=== PATIENT | female | born 1980 | race Caucasian/White ===

== ENCOUNTER 2017-06-30 06:48 | Emergency (ER) | payer BC ==
[~2017-06-30] VITALS: Ht 154.9 cm; Wt 85.0 kg
[~2017-06-30 06:48] MED LIST: BACT800T5 PO; IBUP600 PO; LORTA5 PO
[2017-06-30 06:49] VITALS: BP 168/87; PULSE 97; RESP 16; TEMP 98.5; O2SAT 100
[2017-06-30] MEDS ORDERED: KETOROLAC TROMETHAMINE 30 MG/ML (IVP) VIAL IV PUSH ONE (07:45)
[2017-06-30] MEDS ORDERED: SODIUM CHLOR 0.9% 1000 ML INJ 1,000 ML IV ONE (07:45)
--- NOTE | 2017-06-30 08:27 | PD ---
HPI Chief Complaint: Complaint Time Seen by Provider: 07:34 Travel History International Travel<30 days: No Contact w/Intl Traveler<30days: No Traveled to known affect area: No History of Present Illness HPI This is a 36-year-old female who presents to the emergency department with bilateral lower back pain that's been going on for 6 weeks intermittently, moderate severity, associated with dysuria, urinary urgency, and frequency. She says it feels like urinary tract infections that she's had in the past but it's worse. She says she feels like she has pressure in her low back she is very uncomfortable in the evenings when she tries to sleep. She denies any fevers or chills and denies any nausea or vomiting. PFSH Past Medical History Medical History: Denies Significant Hx Immunizations Current: Yes Tetanus Vaccination: < 5 Years Influenza Vaccination: No ?: Not Past Surgical History Gynecologic Surgery: Yes Other Surgery: Yes (myomectomy 2005) Social History Alcohol Use: No Tobacco Use: Yes Substance Use: No Allergies-Medications (Allergen,Severity, Reaction): Coded Allergies: No Known Allergies (Unverified , 06/30/17) Reported Meds & Prescriptions Reported Meds & Active Scripts Active No Active Prescriptions or Reported Medications Review of Systems Except as stated in HPI: all other systems reviewed are Neg Physical Exam Narrative GENERAL:Well appearing, no acute distress SKIN: Focused skin assessment warm and dry. HEAD: Atraumatic. Normocephalic. EYES: Pupils equal and round. No injection or drainage. ENT: Moist mucous membranes NECK: Trachea midline. CARDIOVASCULAR: Regular rate and rhythm. No murmur appreciated. RESPIRATORY: Clear to auscultation. Breath sounds equal bilaterally. GASTROINTESTINAL: Abdomen soft, non-tender, nondistended. : Bilateral CVA tenderness. MUSCULOSKELETAL: No obvious deformities. NEUROLOGICAL: Awake and alert. No obvious cranial nerve deficits. Moving all extremities. PSYCHIATRIC: Appropriate mood and affect; insight and judgment normal. Data Data Last Documented VS Vital Signs Date Time Temp Pulse Resp B/P Pulse Ox O2 Delivery O2 Flow Rate FiO2 06/30/17 06:49 98.5 97 16 168/87 100 Room Air Orders Complete Blood Count With Diff (06/30/17 07:39) Comprehensive Metabolic Panel (06/30/17 07:39) Ed Urine Pregnancytest Poc (06/30/17 07:39) Urinalysis - C+S If Indicated (06/30/17 07:39) Ketorolac Inj (Toradol Inj) (06/30/17 07:45) Sodium Chlor 0.9% 1000 Ml Inj (Ns 1000 M (06/30/17 07:45) ^ Insert Iv (06/30/17 07:39) Urine Culture (06/30/17 07:00) Ceftriaxone Inj (Rocephin Inj) (06/30/17 09:15) Labs Laboratory Tests Test 06/30/17 06/30/17 07:00 08:09 Urine Color YELLOW Urine Turbidity HAZY Urine pH 5.5 Urine Specific [place] 1.027 Urine Protein NEG mg/dL Urine Glucose (UA) NEG mg/dL Urine Ketones NEG mg/dL Urine Occult Blood NEG Urine Nitrite NEG Urine Bilirubin NEG Urine Urobilinogen LESS THAN 2.0 MG/DL Urine Leukocyte Esterase LARGE Urine RBC 1 /hpf Urine WBC 29 /hpf Urine Squamous Epithelial 6 /hpf Cells Urine Bacteria OCC /hpf Urine Mucus FEW /lpf Microscopic Urinalysis Comment CULTURE INDICATED White Blood Count 8.4 TH/MM3 Red Blood Count 5.15 MIL/MM3 Hemoglobin 14.3 GM/DL Hematocrit 42.4 % Mean Corpuscular Volume 82.3 FL Mean Corpuscular Hemoglobin 27.7 PG Mean Corpuscular Hemoglobin 33.7 % Concent Red Cell Distribution Width 14.8 % Platelet Count 375 TH/MM3 Mean Platelet Volume 7.1 FL Neutrophils (%) (Auto) 62.0 % Lymphocytes (%) (Auto) 30.9 % Monocytes (%) (Auto) 4.8 % Eosinophils (%) (Auto) 1.8 % Basophils (%) (Auto) 0.5 % Neutrophils # (Auto) 5.2 TH/MM3 Lymphocytes # (Auto) 2.6 TH/MM3 Monocytes # (Auto) 0.4 TH/MM3 Eosinophils # (Auto) 0.2 TH/MM3 Basophils # (Auto) 0.0 TH/MM3 CBC Comment DIFF FINAL Differential Comment Sodium Level 142 MEQ/L Potassium Level 3.0 MEQ/L Chloride Level 109 MEQ/L Carbon Dioxide Level 23.9 MEQ/L Anion Gap 9 MEQ/L Blood Urea Nitrogen 11 MG/DL Creatinine 0.60 MG/DL Estimat Glomerular Filtration 114 ML/MIN Rate Random Glucose 84 MG/DL Calcium Level 7.1 MG/DL Protein Corrected Calcium 7.8 MG/DL Total Bilirubin 0.3 MG/DL Aspartate Amino Transf 13 U/L (AST/SGOT) Alanine Aminotransferase 12 U/L (ALT/SGPT) Alkaline Phosphatase 75 U/L Total Protein 5.8 GM/DL Albumin 2.9 GM/DL MDM Medical Decision Making Medical Screen Exam Complete: Yes Emergency Medical Condition: Yes Interpretation(s) Afebrile, mild tachycardia, hypertensive No leukocytosis Mild hypokalemia and mild hypocalcemia Urinary tract infection Differential Diagnosis Pyelonephritis, urinary tract infection, nephrolithiasis, musculoskeletal back pain Narrative Course This is a 36-year-old female who presents to the emergency department with signs and symptoms classic for pyelonephritis. Labs were obtained which were reassuring. Urinalysis demonstrates a urinary tract infection. She was given a dose of IV ceftriaxone as well as pain control. She is nontoxic appearing and I think she is appropriate for outpatient management with oral antibiotic therapy. Diagnosis Primary Impression: Pyelonephritis Patient Instructions: General Instructions Additional Instructions: If you develop fever, persistent vomiting, back pain, or inability to eat return to the emergency department as your urine infection may have progressed to a kidney infection. Complete your antibiotics as prescribed. Stay well hydrated with Gatorade or water. Followup with your primary care physician in 2-3 days if your symptoms have not resolved. Med/Other Pt SpecificInfo: Prescription(s) given Scripts Phenazopyridine (Pyridium)100 Mg [id number] Mg PO Q8H PRN (DYSURIA) #6 TAB Ref 0 Prov:Mehnaz Ag MD 06/30/17 Naproxen 500 Mg [id number] Mg PO BID PRN (PAIN SCALE 4 TO 10) #14 TAB Ref 0 Prov:Mehnaz Ag MD 06/30/17 Cephalexin (Keflex)500 Mg [id number] Mg PO Q12H 7 Days Ref 0 Prov:Mehnaz Ag MD 06/30/17 Disposition: 01 DISCHARGE HOME Condition: Stable Mehnaz Ag MD Jun 30, 2017 08:27
[2017-06-30 08:28] LABS: AUTOMATED NEUTROPHIL # 5.2 TH/MM3 (1.8-7.7); BASOPHIL % 0.5 % (0.0-2.0); EOSINOPHIL # 0.2 TH/MM3 (0-0.4); EOSINOPHIL % 1.8 % (0.0-4.0); HEMATOCRIT 42.4 % (35.0-46.0); HEMO FLAGS DIFF FINAL; LYMPH % 30.9 % (9.0-44.0); LYMPHOCYTE # 2.6 TH/MM3 (1.0-4.8); MEAN CELL VOLUME 82.3 FL (80.0-100.0); MEAN CORPUSCULAR HEMOGLOBIN 27.7 PG (27.0-34.0); MEAN CORPUSCULAR HGB CONC 33.7 % (32.0-36.0); MONO % 4.8 % (0.0-8.0); PLATELET COUNT 375 TH/MM3 (150-450); RED BLOOD COUNT 5.15 MIL/MM3 (4.00-5.30); RED CELL DISTRIBUTION WIDTH 14.8 % (11.6-17.2); WHITE BLOOD COUNT 8.4 TH/MM3 (4.0-11.0)
[2017-06-30 08:39] LABS: BLOOD, URINE NEG (NEG); COMMENT (UR) CULTURE INDICATED; CULTURE IF INDICATED CULTURE INDICATED; GLUCOSE,URINE NEG (NEG); KETONE, URINE NEG (NEG); MUCUS URINE FEW /lpf (OCC); NITRITE,URINE NEG (NEG); PH, URINE 5.5 (5.0-8.5); SQUAMOUS EPITHELIAL CELL URINE 6 /hpf (0-5); URINE COLOR YELLOW (YELLW/STRAW)
[2017-06-30 08:40] LABS: BACTERIA, URINE OCC /hpf
[2017-06-30 09:01] LABS: BICARBONATE 23.9 MEQ/L (21.0-32.0); CALCIUM-PROTEIN CORRECTED 7.8 MG/DL (8.5-10.1); TOTAL BILIRUBIN ADULT 0.3 MG/DL (0.2-1.0)
[2017-06-30] MEDS ORDERED: NAPR500T PO (09:14)
[2017-06-30] MEDS ORDERED: CEPH-460 PO (09:14)
[2017-06-30] MEDS ORDERED: PHEN0.4T PO (09:14)
[2017-06-30] MEDS ORDERED: cefTRIAXone INJ 1,000 MG in SODIUM CHLORIDE 0.9% INJ 100 ML IV ONE (09:15)
[2017-06-30 10:03] VITALS: BP 128/86
== END 2017-06-30 09:24 | disposition home or self-care (01) ==
LOC: NEPE 06:48
DX: N12 Tubulo-interstitial nephritis, not specified as acute or chronic (principal); B96.89 Other specified bacterial agents as the cause of diseases classified elsewhere
CPT/HCPCS: 80053; 81001; 84703; 85025; 87086; 96374; 96375; 99284; J0696; J1885; J7030

== ENCOUNTER 2018-03-25 12:55 | Emergency (ER) | payer SELFPAY ==
[~2018-03-25 12:55] MED LIST changes: -BACT800T5 PO; +CEPH-460 PO; -IBUP600 PO; -LORTA5 PO; +NAPR500T2 PO; +PHEN0.4T PO
[2018-03-25 12:57] VITALS: BP 176/97; PULSE 102; RESP 18; TEMP 98.6; O2SAT 100
--- NOTE | 2018-03-25 13:44 | RADRPT ---
EXAM DATE/TIME: 03/25/2018 13:24 [place] COMPARISON: No previous studies available for comparison. INDICATIONS : Right wrist pain; sprained wrist 3 weeks ago. Follow up. MEDICAL HISTORY : None. SURGICAL HISTORY : None. ENCOUNTER: Initial ACUITY: 3 weeks PAIN SCORE: 1/10 LOCATION: Right wrist. FINDINGS: Three view examination of the right wrist demonstrates no soft tissue swelling, dislocation, or fract ure. The carpal bones are in normal alignment. The joint spaces are maintained. Bony mineralizatio n is normal. CONCLUSION: Unremarkable examination of the right wrist. Adam Bernardo MD on March 25, 2018 at 13:42 Board Certified Radiologist. This report was verified electronically.
--- NOTE | 2018-03-25 14:58 | PD ---
HPI Chief Complaint: Injury Time Seen by Provider: 14:28 Travel History International Travel<30 days: No Contact w/Intl Traveler<30days: No Traveled to known affect area: No History of Present Illness HPI 37-year-old female presents to the emergency room requesting a note for work. Patient states about 3 weeks ago she sprained her right wrist while pulling a deep root out of the ground. She went to her primary care physician who told her it was likely sprained and placed her in a splint. He also gave her prednisone which she took and finished. States she was occasionally taking Tylenol Motrin for pain but since then her symptoms have completely resolved. She has no pain with range of motion or lifting. No pain at rest. No swelling. Her doctor gave her a note to return to work after 1 week of rest. 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 No chronic medical conditions or daily medications. PFSH Past Medical History Medical History: Denies Significant Hx Immunizations Current: Yes Tetanus Vaccination: < 5 Years ?: Not Past Surgical History Gynecologic Surgery: Yes Other Surgery: Yes (myomectomy 2004) Social History Alcohol Use: No Tobacco Use: Yes Substance Use: No Allergies-Medications (Allergen,Severity, Reaction): Coded Allergies: No Known Allergies (Unverified Adverse Reaction, Unknown, 03/25/18) Reported Meds & Prescriptions Reported Meds & Active Scripts Active Pyridium (Phenazopyridine HCl) 100 Mg Tab 100 Mg PO Q8H PRN Naproxen 500 Mg Tab 500 Mg PO BID PRN Keflex (Cephalexin) 500 Mg Cap 500 Mg PO Q12H 7 Days Review of Systems Except as stated in HPI: all other systems reviewed are Neg Physical Exam Narrative GENERAL: Well-nourished, well-developed female no acute distress. Afebrile. Ambulatory. SKIN: Focused skin assessment warm/dry. No erythema or ecchymosis. HEAD: Normocephalic. EYES: No scleral icterus. No injection or drainage. NECK: Supple, trachea midline. No JVD or lymphadenopathy. CARDIOVASCULAR: Regular rate and rhythm without murmurs, gallops, or rubs. RESPIRATORY: Breath sounds equal bilaterally. No accessory muscle use. MUSCULOSKELETAL: No cyanosis, or edema. Full range of motion of the right wrist. 2+ radial pulse. Radial, ulnar, and median nerves intact. Data Data Last Documented VS Vital Signs Date Time Temp Pulse Resp B/P (MAP) Pulse Ox O2 Delivery O2 Flow Rate FiO2 03/25/18 12:57 98.6 102 18 176/97 (123) 100 Orders Orders Wrist, Complete ([id number]) (03/25/18 ) [facility] Medical Decision Making Medical Screen Exam Complete: Yes Emergency Medical Condition: Yes Medical Record Reviewed: Yes Differential Diagnosis Sprain, contusion, normal examination, fracture Narrative Course 37-year-old female presents to the emergency room requesting a work note to return to work. Patient states she sprained her wrist 3 weeks ago and was given a note to return to work but her work would not accept unless she had a negative x-ray. She is completely asymptomatic. She has full range of motion of the right wrist. It is neurovascularly intact. X-ray is negative. She will be given a note to return to work. Told to follow-up with the primary care physician as needed or return for worsening symptoms. She understands and agrees to plan. Diagnosis Primary Impression: Right wrist sprain Qualified Codes: S63.501D - Unspecified sprain of right wrist, subsequent encounter Referrals: Primary Care Physician Departure Forms: Tests/Procedures, Work Release Enter return to work date: Mar 26, 2018 Additional Instructions: Rest and drink plenty of fluids. Follow-up with a primary care physician. Return to the emergency room for worsening symptoms. Med/Other Pt SpecificInfo: Prescription(s) given Disposition: 01 DISCHARGE HOME Condition: Stable Fior Landon Mar 25, 2018 14:58
== END 2018-03-25 15:05 | disposition home or self-care (01) ==
LOC: NEPK 12:55
DX: S63.501D Unspecified sprain of right wrist, subsequent encounter (principal); X50.0XXD Overexertion from strenuous movement or load, subsequent encounter; Z72.0 Tobacco use; Z02.89 Encounter for other administrative examinations
CPT/HCPCS: 73110; 99283

== ENCOUNTER 2018-05-24 11:01 | Emergency (ER) | payer SELFPAY ==
[~2018-05-24] VITALS: Ht 154.9 cm; Wt 86.0 kg
[2018-05-24 11:08] VITALS: BP 148/85; PULSE 90; RESP 19; TEMP 97.5; O2SAT 99
[2018-05-24] MEDS ORDERED: SODIUM CHLOR 0.9% 1000 ML INJ 1,000 ML IV SCH (11:18)
--- NOTE | 2018-05-24 11:20 | PD ---
HPI Chief Complaint: Back/ Neck Pain or Injury Time Seen by Provider: 11:15 Travel History International Travel<30 days: No Contact w/Intl Traveler<30days: No Traveled to known affect area: No History of Present Illness HPI 37-year-old female with no significant medical history presents emergency department for evaluation of bilateral flank pain. Patient states this has persisted for a year. She is seen through the [facility] and has been diagnosed with UTIs or kidney infections several times over the last year. She has been given antibiotics, most recent course was 2 months ago. She states that these never help in improving her symptoms. She comes emergency department today because her pain was more severe than usual. Yesterday she only voided twice which is also unusual for her. Pain is a cramping, intermittently stabbing pain. She denies any abdominal pain. No nausea or vomiting. She has had no fever or chills. Patient's mother had renal cancer and was on dialysis. Her grandmother was also on dialysis for what reason she is unsure. Patient has no other symptoms to report at this time. [facility] Past Medical History Medical History: Denies Significant Hx Immunizations Current: Yes ?: Not LMP: 05/01/18 Past Surgical History Gynecologic Surgery: Yes Other Surgery: Yes (myomectomy 2005) Social History Alcohol Use: No Tobacco Use: Yes Substance Use: No Allergies-Medications (Allergen,Severity, Reaction): Coded Allergies: No Known Allergies (Unverified Adverse Reaction, Unknown, 03/25/18) Reported Meds & Prescriptions Reported Meds & Active Scripts Active Keflex (Cephalexin) 500 Mg Cap 500 Mg PO Q12H 7 Days Pyridium (Phenazopyridine HCl) 100 Mg Tab 100 Mg PO Q8H PRN Naproxen 500 Mg Tab 500 Mg PO BID PRN Keflex (Cephalexin) 500 Mg Cap 500 Mg PO Q12H 7 Days Review of Systems Except as stated in HPI: all other systems reviewed are Neg Physical Exam Narrative GENERAL: Well-nourished female patient, ambulatory and in no acute distress. SKIN: Focused skin assessment warm/dry. HEAD: Atraumatic. Normocephalic. EYES: Pupils equal and round. No scleral icterus. No injection or drainage. ENT: No nasal bleeding or discharge. Mucous membranes pink and moist. NECK: Trachea midline. No JVD. CARDIOVASCULAR: Regular rate and rhythm. No murmur appreciated. RESPIRATORY: No accessory muscle use. Clear to auscultation. Breath sounds equal bilaterally. GASTROINTESTINAL: Abdomen soft, non-tender, nondistended. No guarding. No rebound tenderness. Hepatic and splenic margins not palpable. MUSCULOSKELETAL: No obvious deformities. No clubbing. No cyanosis. No edema. Bilateral CVA tenderness. NEUROLOGICAL: Awake and alert. No obvious cranial nerve deficits. Motor grossly within normal limits. Normal speech. PSYCHIATRIC: Appropriate mood and affect; insight and judgment normal. Data Data Last Documented VS Vital Signs Date Time Temp Pulse Resp B/P (MAP) Pulse Ox O2 Delivery O2 Flow Rate FiO2 05/24/18 13:55 63 18 135/60 (85) 99 Room Air 05/24/18 11:08 97.5 Orders Orders Basic Metabolic Panel (Bmp) (05/24/18 11:18) Complete Blood Count With Diff (05/24/18 11:18) Urinalysis - C+S If Indicated (05/24/18 11:18) Ct Abd/Pel W/O Iv Contrast (05/24/18 11:18) Iv Access Insert/Monitor (05/24/18 11:18) Ecg Monitoring (05/24/18 11:18) Oximetry (05/24/18 11:18) Sodium Chlor 0.9% 1000 Ml Inj (Ns 1000 M (05/24/18 11:18) Sodium Chloride 0.9% Flush (Ns Flush) (05/24/18 11:30) Ketorolac Inj (Toradol Inj) (05/24/18 11:30) Ed Urine Pregnancytest Poc (05/24/18 11:18) Urine Culture (05/24/18 11:42) Us Kidney/Renal/Bladder (05/24/18 ) Ed Discharge Order (05/24/18 16:15) Mandatory Outpatient Referral (05/24/18 16:19) Labs Laboratory Tests Test 05/24/18 11:42 White Blood Count 7.4 TH/MM3 Red Blood Count 4.82 MIL/MM3 Hemoglobin 12.9 GM/DL Hematocrit 39.4 % Mean Corpuscular Volume 81.8 FL Mean Corpuscular Hemoglobin 26.7 PG Mean Corpuscular Hemoglobin Concent 32.7 % Red Cell Distribution Width 14.7 % Platelet Count 362 TH/MM3 Mean Platelet Volume 7.3 FL Neutrophils (%) (Auto) 61.5 % Lymphocytes (%) (Auto) 30.7 % Monocytes (%) (Auto) 5.5 % Eosinophils (%) (Auto) 1.8 % Basophils (%) (Auto) 0.5 % Neutrophils # (Auto) 4.6 TH/MM3 Lymphocytes # (Auto) 2.3 TH/MM3 Monocytes # (Auto) 0.4 TH/MM3 Eosinophils # (Auto) 0.1 TH/MM3 Basophils # (Auto) 0.0 TH/MM3 CBC Comment DIFF FINAL Differential Comment Urine Color YELLOW Urine Turbidity CLOUDY Urine pH 5.0 Urine Specific [place] 1.024 Urine Protein NEG mg/dL Urine Glucose (UA) NEG mg/dL Urine Ketones NEG mg/dL Urine Occult Blood NEG Urine Nitrite NEG Urine Bilirubin NEG Urine Urobilinogen 4.0 OR GREATER mg/dL Urine Leukocyte Esterase LARGE Urine RBC 6 /hpf Urine WBC 16 /hpf Urine Squamous Epithelial Cells 14 /hpf Urine Calcium Oxalate Crystals MOD /hpf Urine Bacteria RARE /hpf Urine Mucus FEW /lpf Microscopic Urinalysis Comment CULTURE INDICATED Blood Urea Nitrogen 11 MG/DL Creatinine 0.93 MG/DL Random Glucose 114 MG/DL Calcium Level 8.3 MG/DL Sodium Level 141 MEQ/L Potassium Level 3.7 MEQ/L Chloride Level 106 MEQ/L Carbon Dioxide Level 27.7 MEQ/L Anion Gap 7 MEQ/L Estimat Glomerular Filtration Rate 68 ML/MIN [facility] Medical Decision Making Medical Screen Exam Complete: Yes Emergency Medical Condition: Yes Medical Record Reviewed: Yes Differential Diagnosis Pyelonephritis versus renal calculi versus neoplasm versus back pain versus muscle spasm versus strain Narrative Course 37-year-old female presents emergency department for evaluation of bilateral flank pain. Patient appears well. Her vital signs are stable. She does have bilateral CVA tenderness. Patient reports no history of scan or lab work in regards to her recurrent UTIs. Laboratory Tests Test 05/24/18 11:42 White Blood Count 7.4 TH/MM3 Red Blood Count 4.82 MIL/MM3 Hemoglobin 12.9 GM/DL Hematocrit 39.4 % Mean Corpuscular Volume 81.8 FL Mean Corpuscular Hemoglobin 26.7 PG Mean Corpuscular Hemoglobin Concent 32.7 % Red Cell Distribution Width 14.7 % Platelet Count 362 TH/MM3 Mean Platelet Volume 7.3 FL Neutrophils (%) (Auto) 61.5 % Lymphocytes (%) (Auto) 30.7 % Monocytes (%) (Auto) 5.5 % Eosinophils (%) (Auto) 1.8 % Basophils (%) (Auto) 0.5 % Neutrophils # (Auto) 4.6 TH/MM3 Lymphocytes # (Auto) 2.3 TH/MM3 Monocytes # (Auto) 0.4 TH/MM3 Eosinophils # (Auto) 0.1 TH/MM3 Basophils # (Auto) 0.0 TH/MM3 CBC Comment DIFF FINAL Differential Comment Urine Color YELLOW Urine Turbidity CLOUDY Urine pH 5.0 Urine Specific [place] 1.024 Urine Protein NEG mg/dL Urine Glucose (UA) NEG mg/dL Urine Ketones NEG mg/dL Urine Occult Blood NEG Urine Nitrite NEG Urine Bilirubin NEG Urine Urobilinogen 4.0 OR GREATER mg/dL Urine Leukocyte Esterase LARGE Urine RBC 6 /hpf Urine WBC 16 /hpf Urine Squamous Epithelial Cells 14 /hpf Urine Calcium Oxalate Crystals MOD /hpf Urine Bacteria RARE /hpf Urine Mucus FEW /lpf Microscopic Urinalysis Comment CULTURE INDICATED Blood Urea Nitrogen 11 MG/DL Creatinine 0.93 MG/DL Random Glucose 114 MG/DL Calcium Level 8.3 MG/DL Sodium Level 141 MEQ/L Potassium Level 3.7 MEQ/L Chloride Level 106 MEQ/L Carbon Dioxide Level 27.7 MEQ/L Anion Gap 7 MEQ/L Estimat Glomerular Filtration Rate 68 ML/MIN Last Impressions Abdomen/Pelvis CT 05/24/18 1118 Signed Impressions: CONCLUSION: 1. Degenerative changes at L4-5. 2. No acute inflammatory process. 3. Nonspecific low-density involving left kidney. Nonemergent renal sonogram r ecommended. Renal Ultrasound 05/24/18 0000 Signed Impressions: CONCLUSION: 1. Echogenic kidneys suggesting medical renal disease. No hydronephrosis. 2 cm left renal cyst. Multiple gallstones. Findings are discussed with the patient. She is encouraged to seek nephrology evaluation. She agrees to return immediately with acute worsening symptoms. Diagnosis Primary Impression: Flank pain Additional Impressions: Echogenic kidneys on renal ultrasound Hematuria Qualified Codes: R31.9 - Hematuria, unspecified Referrals: Primary Care Physician Patient Instructions: Flank Pain (ED), General Instructions Additional Instructions: Follow-up with a pathologist assistant Follow-up with primary care provider Avoid NSAIDs Tylenol as directed on the package as needed for pain Return immediately with acute worsening of symptoms Med/Other Pt SpecificInfo: Prescription(s) given Scripts Cephalexin (Keflex) 500 Mg Cap 500 MG PO Q12H for Infection for 7 Days, #14 CAP 0 Refills Prov: Bryanna Evans 05/24/18 Disposition: 01 DISCHARGE HOME Condition: Stable Bryanna Evans May 24, 2018 11:20
[2018-05-24] MEDS ORDERED: SODIUM CHLORIDE 0.9% FLUSH 10 ML FLUSH IV FLUSH PRN (11:30)
[2018-05-24] MEDS ORDERED: KETOROLAC TROMETHAMINE 30 MG/ML (IVP) VIAL IVP ONE (11:30)
[2018-05-24 12:08] LABS: AUTOMATED NEUTROPHIL # 4.6 TH/MM3 (1.8-7.7); BASOPHIL % 0.5 % (0.0-2.0); EOSINOPHIL # 0.1 TH/MM3 (0-0.4); EOSINOPHIL % 1.8 % (0.0-4.0); HEMATOCRIT 39.4 % (35.0-46.0); HEMOGLOBIN 12.9 GM/DL (11.6-15.3); LYMPH % 30.7 % (9.0-44.0); LYMPHOCYTE # 2.3 TH/MM3 (1.0-4.8); MEAN CELL VOLUME 81.8 FL (80.0-100.0); MEAN CORPUSCULAR HEMOGLOBIN 26.7 PG (27.0-34.0); MEAN CORPUSCULAR HGB CONC 32.7 % (32.0-36.0); MEAN PLATELET VOLUME 7.3 FL (7.0-11.0); MONO % 5.5 % (0.0-8.0); MONOCYTE # 0.4 TH/MM3 (0-0.9); NEUT % 61.5 % (16.0-70.0); PLATELET COUNT 362 TH/MM3 (150-450); RED BLOOD COUNT 4.82 MIL/MM3 (4.00-5.30); RED CELL DISTRIBUTION WIDTH 14.7 % (11.6-17.2); WHITE BLOOD COUNT 7.4 TH/MM3 (4.0-11.0)
[2018-05-24 12:15] LABS: BACTERIA, URINE RARE /hpf; BILIRUBIN, URINE NEG (NEG); BLOOD, URINE NEG (NEG); CALCIUM OXALATE CRYSTALS,URINE MOD /hpf; GLUCOSE,URINE NEG (NEG); KETONE, URINE NEG (NEG); MUCUS URINE FEW /lpf (OCC); NITRITE,URINE NEG (NEG); SQUAMOUS EPITHELIAL CELL URINE 14 /hpf (0-5); URINE COLOR YELLOW (YELLW/STRAW); URINE LEUKOCYTE ESTERASE LARGE (NEG)
[2018-05-24 12:22] LABS: BICARBONATE 27.7 MEQ/L (21.0-32.0); CALCIUM 8.3 MG/DL (8.5-10.1); CREATININE 0.93 MG/DL (0.50-1.00)
[2018-05-24 13:55] VITALS: BP 135/60; PULSE 63; RESP 18; O2SAT 99
--- NOTE | 2018-05-24 14:04 | RADRPT ---
EXAM DATE: 05/24/2018 1:55 PM EDT AGE/SEX: 37 years / Female INDICATIONS: Lower back pain for one year. CLINICAL DATA: This is the patient's initial encounter. Patient reports that signs and symptoms have been present for > 1 year and indicates a pain score of 6/10. MEDICAL/SURGICAL HISTORY: None. . myomectomy RADIATION DOSE: 8.51 CTDI (mGy) COMPARISON: No prior exams available for comparison. TECHNIQUE: Multiple contiguous axial images were obtained through the abdomen. Images were obtained using multiple row detector helical technique. Using automated exposure control and adjustment of the mA and/or kV according to patient size, radiation dose was kept as low as reasonably achievable to o btain optimal diagnostic quality images. DICOM format image data is available electronically for rev iew and comparison. FINDINGS: Lower Lungs: The visualized lower lungs are clear. Liver: The liver has a homogeneous density without space-occupying lesion. There is no dilation of th e biliary tree. Spleen: Homogeneous density without enlargement. Pancreas: Unremarkable without mass or calcification. Kidneys: Normal in size and shape. No evidence of mass or hydronephrosis. Nonspecific low-density le ft kidney Adrenal Glands: Unremarkable. Aorta: The aorta and proximal iliac vessels are grossly unremarkable without aneurysmal dilation. Bowel/Mesentery: The bowel loops are grossly unremarkable. The cecum and sigmoid colon have a normal configuration. Abdominal Wall: Intact. Retroperitoneum: No evidence of adenopathy in the retrocrural, para-aortic, or deep pelvic regions. Bladder: Contours are smooth. Reproductive Organs: No abnormal masses or calcifications seen. Right ovary borderline prominent esperanza suring 4 cm. Inguinal: The inguinal region is unremarkable without evidence of adenopathy. Bony Structures: Degenerative changes L4-5. CONCLUSION: 1. Degenerative changes at L4-5. 2. No acute inflammatory process. 3. Nonspecific low-density involving left kidney. Nonemergent renal sonogram recommended. Electronically signed by: Rian Jones MD 05/24/2018 2:03 PM EDT
--- NOTE | 2018-05-24 16:01 | RADRPT ---
EXAM DATE: 05/24/2018 3:46 PM EDT AGE/SEX: 37 years / Female INDICATIONS: Flank pain. CLINICAL DATA: This is the patient's initial encounter. Patient reports that signs and symptoms have been present for > 1 year and indicates a pain score of 3/10. MEDICAL/SURGICAL HISTORY: . Kidney stones. Tobacco use. Kidney infection. . Myomectomy. COMPARISON: No prior exams available for comparison. MEASUREMENTS: Right Kidney:__10.0 x 4.3 x 5.1 cm Left Kidney:__10.5 x 4.5 x 5.3 cm FINDINGS: Right Kidney: Increased echotexture. No mass or hydronephrosis. Left Kidney: Increased echotexture. No mass or hydronephrosis. Bladder: Within normal limits given the degree of distension. Other: Echogenic gallstones present CONCLUSION: 1. Echogenic kidneys suggesting medical renal disease. No hydronephrosis. 2 cm left renal cyst. Mult iple gallstones. Electronically signed by: Isak Obregon MD 05/24/2018 4:00 PM EDT
[2018-05-24] MEDS ORDERED: CEPH-460 PO ×2 (16:18→16:25)
[2018-05-24 16:39] VITALS: BP 132/64
--- NOTE | 2018-05-24 20:01 | PD ---
Physical Exam Date Seen by Provider: May 24, 2018 Time Seen by Provider: 12:00 Narrative I, Dr. Sanchez, have reviewed the advance practice practitioner's documentation and am in agreement, met with the patient face to face, made the diagnosis, and the medical decision making was done by me. *My assessment and Findings: Patient seen and evaluated with nurse practitioner , please see nurse practitioner notes for further details. She is coming in with flank pains, has poor follow-up care, worsening. On evaluation, she has bilateral flank tenderness. Abdomen soft, nontender. Laboratory Tests Test 05/24/18 11:42 Mean Corpuscular Hemoglobin 26.7 PG (27.0-34.0) Urine Turbidity CLOUDY (CLEAR) Urine Urobilinogen 4.0 OR GREATER mg/dL (LESS Urine Leukocyte Esterase LARGE (NEG) Urine RBC 6 /hpf (0-3) Urine WBC 16 /hpf (0-5) Urine Calcium Oxalate Crystals MOD /hpf (NONE) Urine Bacteria RARE /hpf (NONE) Urine Mucus FEW /lpf (OCC) Random Glucose 114 MG/DL (74-106) Calcium Level 8.3 MG/DL (8.5-10.1) Estimat Glomerular Filtration Rate 68 ML/MIN (>89) Last 24 hours Impressions Abdomen/Pelvis CT 05/24/18 1118 Signed Impressions: CONCLUSION: 1. Degenerative changes at L4-5. 2. No acute inflammatory process. 3. Nonspecific low-density involving left kidney. Nonemergent renal sonogram r ecommended. Renal Ultrasound 05/24/18 0000 Signed Impressions: CONCLUSION: 1. Echogenic kidneys suggesting medical renal disease. No hydronephrosis. 2 cm left renal cyst. Multiple gallstones. Lab work shows signs a UTI. Plan would be to treat her for UTI. CAT scan was done did not show any signs of acute intra-abdominal processes but does show a low density abnormality in the left kidney, ultrasound was done which shows 2 cm renal cyst. Patient is released with follow-up to outpatient care. Data Data Last Documented VS Vital Signs Date Time Temp Pulse Resp B/P (MAP) Pulse Ox O2 Delivery O2 Flow Rate FiO2 05/24/18 16:39 61 19 132/64 (86) 98 05/24/18 13:55 Room Air 05/24/18 11:08 97.5 Orders Orders Basic Metabolic Panel (Bmp) (05/24/18 11:18) Complete Blood Count With Diff (05/24/18 11:18) Urinalysis - C+S If Indicated (05/24/18 11:18) Ct Abd/Pel W/O Iv Contrast (05/24/18 11:18) Iv Access Insert/Monitor (05/24/18 11:18) Ecg Monitoring (05/24/18 11:18) Oximetry (05/24/18 11:18) Sodium Chlor 0.9% 1000 Ml Inj (Ns 1000 M (05/24/18 11:18) Sodium Chloride 0.9% Flush (Ns Flush) (05/24/18 11:30) Ketorolac Inj (Toradol Inj) (05/24/18 11:30) Ed Urine Pregnancytest Poc (05/24/18 11:18) Urine Culture (05/24/18 11:42) Us Kidney/Renal/Bladder (05/24/18 ) Ed Discharge Order (05/24/18 16:15) Mandatory Outpatient Referral (05/24/18 16:19) Labs Laboratory Tests Test 05/24/18 11:42 White Blood Count 7.4 TH/MM3 Red Blood Count 4.82 MIL/MM3 Hemoglobin 12.9 GM/DL Hematocrit 39.4 % Mean Corpuscular Volume 81.8 FL Mean Corpuscular Hemoglobin 26.7 PG Mean Corpuscular Hemoglobin Concent 32.7 % Red Cell Distribution Width 14.7 % Platelet Count 362 TH/MM3 Mean Platelet Volume 7.3 FL Neutrophils (%) (Auto) 61.5 % Lymphocytes (%) (Auto) 30.7 % Monocytes (%) (Auto) 5.5 % Eosinophils (%) (Auto) 1.8 % Basophils (%) (Auto) 0.5 % Neutrophils # (Auto) 4.6 TH/MM3 Lymphocytes # (Auto) 2.3 TH/MM3 Monocytes # (Auto) 0.4 TH/MM3 Eosinophils # (Auto) 0.1 TH/MM3 Basophils # (Auto) 0.0 TH/MM3 CBC Comment DIFF FINAL Differential Comment Urine Color YELLOW Urine Turbidity CLOUDY Urine pH 5.0 Urine Specific [place] 1.024 Urine Protein NEG mg/dL Urine Glucose (UA) NEG mg/dL Urine Ketones NEG mg/dL Urine Occult Blood NEG Urine Nitrite NEG Urine Bilirubin NEG Urine Urobilinogen 4.0 OR GREATER mg/dL Urine Leukocyte Esterase LARGE Urine RBC 6 /hpf Urine WBC 16 /hpf Urine Squamous Epithelial Cells 14 /hpf Urine Calcium Oxalate Crystals MOD /hpf Urine Bacteria RARE /hpf Urine Mucus FEW /lpf Microscopic Urinalysis Comment CULTURE INDICATED Blood Urea Nitrogen 11 MG/DL Creatinine 0.93 MG/DL Random Glucose 114 MG/DL Calcium Level 8.3 MG/DL Sodium Level 141 MEQ/L Potassium Level 3.7 MEQ/L Chloride Level 106 MEQ/L Carbon Dioxide Level 27.7 MEQ/L Anion Gap 7 MEQ/L Estimat Glomerular Filtration Rate 68 ML/MIN [facility] Medical Record Reviewed: Yes Supervised Visit with CATHIE: Yes Diagnosis Primary Impression: Flank pain Additional Impressions: Hematuria Echogenic kidneys on renal ultrasound Referrals: Primary Care Physician Patient Instructions: General Instructions, Cephalexin (By mouth), Flank Pain ( ED) Departure Forms: Tests/Procedures Additional Instruction: Follow-up with a wet pan operator Follow-up with primary care provider Avoid NSAIDs Tylenol as directed on the package as needed for pain Return immediately with acute worsening of symptoms Scripts Cephalexin (Keflex) 500 Mg Cap 500 MG PO Q12H for Infection for 7 Days, #14 CAP 0 Refills Prov: Bryanna Evans TYREE 05/24/18 Disposition: 01 DISCHARGE HOME Condition: Stable Edith Sanchez MD May 24, 2018 20:01
== END 2018-05-24 16:40 | disposition home or self-care (01) ==
LOC: NEPE 11:01
DX: R10.9 Unspecified abdominal pain (principal); R31.9 Hematuria, unspecified; R93.422 Abnormal radiologic findings on diagnostic imaging of left kidney; R93.421 Abnormal radiologic findings on diagnostic imaging of right kidney; N28.1 Cyst of kidney, acquired; Z72.0 Tobacco use
CPT/HCPCS: 74176; 76775; 80048; 81001; 84703; 85025; 87086; 96374; 99285; J1885; J7030